=== PATIENT | male | born 1980 | race Caucasian/White ===

== ENCOUNTER 2018-11-01 16:38 | Observation (INO) ==
--- NOTE | 2018-11-01 16:58 | Emergency Department Note ---
ED Provider Note CHIEF COMPLAINT: Low back pain HISTORY OF PRESENT ILLNESS: This 38-year-old male presents to the ER with increased low back pain with radiation into his right leg. The patient states that he has had chronic back pain but it has been getting progressively worse. He was seen by his family doctor for his symptoms and referred to Dr. Davenport. Yonas guallpa has not seen Dr. Davenport yet but had seen Dr. Bruno at [facility] who got an MRI approved which she obtained on at 611. He does not know the results. The patient states that last night he could not sleep secondary to the pain. He thinks his right lower leg is getting weaker. He states his entire right leg gets numb intermittently. He denies any loss of bowel or bladder control or any saddle anesthesia. The patient denies any prior surgery to his back. He states he has tried steroids in the past without any relief of his symptoms. REVIEW OF SYSTEMS: 6 system review was performed and was negative unless stated otherwise in history of present illness. PMH: The patient is healthy; chronic problem list was reviewed and there are no changes. SOCIAL HISTORY: Patient lives with his and children. The patient admits to tobacco use and occasional alcohol use. PHYSICAL EXAM: Vital Signs were reviewed reviewed Nurse's notes and agree. GENERAL: 38-year-old white male appears in no acute distress. MENTAL STATUS: Oriented x3. NECK: Supple, no lymphadenopathy noted. No carotid bruits noted. LUNGS: Clear to auscultation without wheezes rales or rhonchi. CARDIAC: Regular rate and rhythm without murmur. Pulses full and equal throughout. ABDOMEN: Positive bowel sounds all 4 quadrants. Soft, nontender to palpation without organomegaly or masses. LUMBAR SPINE: No gross bony abnormality noted. Patient is nontender to palpation over the spinous processes. He is nontender to palpation over the paravertebral region bilaterally. He has limited range of motion in all directions secondary to pain. Patient has slight decreased strength in the right lower extremity with flexion of the lower leg as compared to the left. Extension is 5 out of 5 and symmetrical. The patient is unable to toe walk on the right foot but is able to heel walk. Bilateral patellar reflexes are 2+. LOWER EXTREMITIES: No cyanosis or edema noted. Calves are nontender to palpation. EMERGENCY DEPARTMENT COURSE: The patient was evaluated. The patient was given Toradol 60 mg IM, OxyIR 5 mg p.o. and Flexeril 10 mg p.o. The patient states that a family member who works for Dr. Davenport contacted Dr. Davenport prior to them coming to the ER. The patient states that Dr. Davenport wanted notified when the patient arrived at the ER. I consulted [facility], spine and spoke with the PA salesperson sheet music. She did not know anything about the patient. She is trying to contact Dr. Davenport. Dr. Davenport came to evaluate the patient and is going to admit the patient for observation with possible surgery tomorrow if approval is given by the insurance. The patient informed me that Dr. Davenport had reviewed his MRI and that he has a disc herniation L5-S1 and a fragment of the disc has migrated inferiorly. DIAGNOSIS: Lumbar disc herniation with radiculopathy DISCHARGE INSTRUCTIONS AND TREATMENT: Admission for observation Impression & Plan Lumbar disc herniation with radiculopathy Past Med/Surg History Medical History Hypothyroidism Anxiety and depression Dyslipidemia BMI 24.0-24.9, adult (Ruled-out) Surgical History No pertinent past surgical history Family History Father Rheumatoid arthritis Heart disease Myocardial infarction, Onset Age: 67 Mother No known problems Social History Preferred Language: Albanian marital status: Current Living Situation: Spouse and Family Current Living Situation Comment: Living with spouse and children current occupational status: employed current occupation: [employer] at [employer] Feels Safe at Home: Yes Smoking Status: Current every day smoker Tobacco Type: cigarettes packs per day: 0.5 Hx Alcohol Use: Yes (Weekly use) Alcohol type: beer Hx Substance Use: No Other Diet Comment: Well-balanced diet Dental Care, Regularly: Yes Physical Activity Frequency: 3-4 Times per Week Seatbelt Use: always Sunscreen Use: Yes Results & Data Vital Signs Vital Signs - 24 hr 11/01/18 16:39 Temperature 36.7 C Temperature Source Oral Sepsis Recent Fever Within 48 Hours No Sepsis New/Unexplained Change in Mental Status No Sepsis Action Taken by Nursing No Action Required Pulse Rate 77 Respiratory Rate 88 H Respiratory Effort / Characteristics Non-Labored Respiratory Depth Normal Blood Pressure 172/84 H Blood Pressure Mean 113 Blood Pressure Position Sitting Pulse Oximetry 16 L Oxygen Delivery Method Room Air Laboratory Data Result diagrams: 11/01/18 18:45 11/01/18 18:45 Lab Results 11/01/18 Range/Units 18:45 WBC 7.07 (4.8-10.8) K/uL RBC 5.17 (4.7-6.1) M/uL Hgb 16.7 (14.0-18.0) g/dL Hct 46.5 (42-52) % MCV 89.9 (80-100) fL MCH 32.3 (25-34) pg MCHC 35.9 (32-36) g/dL RDW Std Deviation 42.0 (36.4-46.3) fL RDW Coeff of Armida 12.9 (11.5-14.5) % Plt Count 205 (130-400) K/uL MPV 9.4 (7.4-10.4) fL Immature Gran % (Auto) 0.1 % Neut % (Auto) 63.1 % Lymph % (Auto) 23.2 % Bremer % (Auto) 11.2 % Eos % (Auto) 2.0 % Baso % (Auto) 0.4 % Immature Gran # (Auto) 0.01 (0.00-0.02) K/uL Neut # (Auto) 4.46 (1.4-6.5) K/uL Lymph # (Auto) 1.64 (1.2-3.4) K/uL Bremer # (Auto) 0.79 H (0.11-0.59) K/uL Eos # (Auto) 0.14 (0-0.5) K/uL Baso # (Auto) 0.03 (0-0.2) K/uL Administered Medications Discontinued Medications Cyclobenzaprine HCl (Flexeril) 10 mg PO NOW STA Stop: 11/01/18 17:04 Last Admin: 11/01/18 17:07 Dose: 10 mg Documented by: [id number] Ketorolac Tromethamine (Toradol) 60 mg IM NOW STA Stop: 11/01/18 17:04 Last Admin: 11/01/18 17:07 Dose: 60 mg Documented by: [id number] Oxycodone HCl (Roxicodone Immediate Rel) 5 mg PO NOW STA Stop: 11/01/18 17:04 Last Admin: 11/01/18 17:07 Dose: 5 mg Documented by: [id number] Discharge Plan Visit Data Chief Complaint: Back Injury/Pain ED Provider: Hossein Huber ED Midlevel Provider: Mecca Elizalde Discharge Problem: Lumbar disc herniation with radiculopathy Patient Disposition: Admitted As Inpatient Condition: Good Forms Stand Alone Forms: My [facility] Prescriptions Prescriptions: No Action bupropion HCl 300 mg tablet extended release 24 hr 300 mg PO QAM Qty: 90 RF: 0 levothyroxine 75 mcg tablet 75 mcg PO DAILY Qty: 30 RF: 1 Referrals Referrals: Tracy James DO [Primary Care Provider] -
[2018-11-01] MEDS ORDERED: OXYCODONE HCL IR 5 MG TAB (IMMEDIATE RELEASE) PO STA (17:03)
[2018-11-01] MEDS ORDERED: CYCLOBENZAPRINE HCL 10 MG TAB PO STA (17:03)
[2018-11-01] MEDS ORDERED: KETOROLAC TROMETHAMINE 60 MG/2 ML VIAL IM STA (17:03)
[2018-11-01] MEDS ORDERED: ACETAMINOPHEN 325 MG TAB PO PRN (18:16)
[2018-11-01] MEDS ORDERED: PROMETHAZINE HCL 12.5 MG in SODIUM CHLORIDE 0.9% 50 ML IV PRN (18:16)
[2018-11-01] MEDS ORDERED: LORazepam 1 MG TAB PO PRN (18:16)
[2018-11-01] MEDS ORDERED: LORazepam 1 MG/2 ML VIAL IV PRN (18:16)
[2018-11-01] MEDS ORDERED: HYDROmorphone INJ 0.5 MG/0.5 ML SYR IV PRN (18:16)
--- NOTE | 2018-11-01 18:25 | History & Physical Report ---
Date of Service November 01, 2018 Assessment & Plan (1) Lumbar disc herniation with radiculopathy: This time patient presents with severe S1 radiculopathy on the right with profound motor deficit. MRI obtained 3 days ago does demonstrate a massive herniated free fragment on the right at the L5-S1 level. This is concordant with his S1 radiculopathy and motor deficit. We had a lengthy discussion today with his present regarding his presentation and discomfort as well as weakness. He could consider surgical intervention. He would require a lumbar laminotomy with excision of the herniated free fragment. Risk benefits pros cons and alternatives were outlined in detail. Risks include but not limited to from anesthesia final stroke paralysis nerve damage blood loss crying transfusion infection requiring reoperation. Benadryl to be marked improvement of his radiculopathy and eventual return of his strength. At this time we will place him in the hospital for observation and adequate pain control and perform surgery tomorrow. Present on Admission?: Yes History of Present Illness Chief Complaint: Back and right leg pain Primary Care Provider: Tracy James DO This is a 38-year-old male that presents the emergency room with incapacitating right leg pain and inability to ambulate. He states that on October 13 he began experiencing fairly significant lumbosacral back pain. But the next morning he had marked severe right leg pain radiating from his right buttock posterior thi gh below the knee into his heel. Numbness and tingling extending up to the right small toe. Left lower extremity is asymptomatic. He denies any specific trauma fall or event. He does have a history of back pain for several years but nothing of this nature. He has undergone a course of oral steroids without any resolution in pain. He is trialed oral narcotics with out any improvement of his discomfort. He notes marked weakness to the right calf musculature and inability to ambulate. Pain does awaken him from sleep. Denies any loss of bowel bladder control. Allergies Allergy/AdvReac Type Severity Reaction Status Date / Time No Known Allergies Allergy Verified 11/01/18 16:57 Home Medications Home Medications Medication Instructions Recorded Confirmed Type bupropion HCl XL 300 mg 24 hr 300 mg PO QAM #90 tab 10/02/18 11/01/18 Rx tablet, extended release levothyroxine 75 mcg tablet 75 mcg PO DAILY #30 tab 10/20/18 11/01/18 Rx Past Med/Surg History Medical History Hypothyroidism Anxiety and depression Dyslipidemia BMI 24.0-24.9, adult (Ruled-out) Surgical History No pertinent past surgical history Family History Father Rheumatoid arthritis Heart disease Myocardial infarction, Onset Age: 67 Mother No known problems Social History Preferred Language: Azeri marital status: Current Living Situation: Spouse and Family Current Living Situation Comment: Living with spouse and children current occupational status: employed current occupation: [employer] at [employer] Feels Safe at Home: Yes Smoking Status: Current every day smoker Tobacco Type: cigarettes packs per day: 0.5 Hx Alcohol Use: Yes (Weekly use) Alcohol type: beer Hx Substance Use: No Other Diet Comment: Well-balanced diet Dental Care, Regularly: Yes Physical Activity Frequency: 3-4 Times per Week Seatbelt Use: always Sunscreen Use: Yes Physical Exam Physical Exam: Patient is able to sit the bedside. He is in obvious distress. He has a plus 5 out of 5 left plantar flexion dorsiflexion extensor hallucis longus quadriceps with full sensation. On the right he has plus 5 out of 5 right extensor hallucis longus quadriceps. He has marked deficits to plantar flexion. Upon standing he is unable to perform a single heel rise using his right lower extremity. He has no difficulty with the left lower extremity. He has marked tension signs with straight leg raising on the right as well as a positive Lasegue's maneuver negative on the left. He has no abnormal skin markings with inspection lumbar spine. Results & Data Vital Signs (Past 12 Hours) Vital Signs Temp Pulse Resp BP Pulse Ox 11/01/18 16:39 36.7 C 77 88 H 172/84 H 16 L
[2018-11-01 18:54] LABS: Basophils # (auto) 0.03 K/uL (0-0.2); Basophils % (auto) 0.4 %; Eosinophils # (auto) 0.14 K/uL (0-0.5); Hematocrit (blood only) 46.5 % (42-52); Hemoglobin 16.7 g/dL (14.0-18.0); Immature Granulocytes # (auto) 0.01 K/uL (0.00-0.02); Immature Granulocytes % (auto) 0.1 %; Lymphocytes # (auto) 1.64 K/uL (1.2-3.4); Lymphocytes % (auto) 23.2 %; Mean Corpuscular Hgb Conc 35.9 g/dL (32-36); Mean Corpuscular Volume 89.9 fL (80-100); Mean Platelet Volume 9.4 fL (7.4-10.4); Monocytes # (auto) 0.79 K/uL (0.11-0.59); Monocytes % (auto) 11.2 %; Neutrophils # (auto) 4.46 K/uL (1.4-6.5); Neutrophils % (auto) 63.1 %; Platelet Count 205 K/uL (130-400); RDW Coefficient of Variation 12.9 % (11.5-14.5); Red Blood Count 5.17 M/uL (4.7-6.1); White Blood Count 7.07 K/uL (4.8-10.8)
[2018-11-01 19:17] LABS: Albumin Level 4.2 gm/dl (3.4-5.0); BUN Creatinine Ratio 14.6 (10-20); Calcium 9.2 mg/dl (8.5-10.1); Creatinine Clr Calc Pharmacy 97.8 ml/min; Est GFR (African American) 106.6; Est GFR (Non-African American) 91.9; Potassium 4.2 mmol/L (3.5-5.1)
[2018-11-01 19:19] LABS: Albumin Globulin Ratio 1.2 (0.9-2); Bilirubin,Total 0.3 mg/dl (0.2-1); Globulin 3.5 gm/dl (2.5-4.0); Total Protein 7.7 gm/dl (6.4-8.2)
[2018-11-01] MEDS: LACTATED RINGER'S 1,000 ML IV SCH (20:06)
[2018-11-01] MEDS: ONDANSETRON INJ 2 MG/ML 2 ML VIAL IV PRN (20:09)
[2018-11-01] MEDS: DOCUSATE SODIUM 100 MG CAP PO SCH (20:56)
[2018-11-01] MEDS: OXYCODONE/ACETAMINOPHEN 5mg/325mg TAB PO PRN (20:58)
--- NOTE | 2018-11-01 23:23 | Anesthesiology Consultation ---
Date of Service November 01, 2018 Assessment & Plan Chart Review Chart Review: Acceptable Risk for Surgery, Patient NOT seen in Pre Admission Testing and entry level recruiter initiated Consults Requested none Additional Notes Additional assessment to be performed by the anesthesiologist for the case on the day of surgery. History Height/Weight Height: 6 ft 1 in Weight: 89 kg Allergies Allergy/AdvReac Type Severity Reaction Status Date / Time No Known Allergies Allergy Verified 11/01/18 16:57 Medications Home Medications Medication Instructions Recorded Confirmed Last Taken bupropion HCl XL 300 mg 24 hr 300 mg PO QAM #90 tab 10/02/18 11/01/18 11/01/18 tablet, extended release levothyroxine 75 mcg tablet 75 mcg PO DAILY #30 tab 10/20/18 11/01/18 11/01/18 Active Medications Generic Name Dose Route Start Last Admin Trade Name Freq PRN Reason Stop Dose Admin Docusate Sodium 100 mg 11/01/18 21:00 11/01/18 20:56 Colace PO 12/01/18 20:59 Not Given BID CHRISTOPHE Lactated Ringer's 1,000 mls @ 75 mls/hr 11/01/18 18:30 11/01/18 20:06 Lr IV 12/01/18 18:29 75 mls/hr .[id number] CHRISTOPHE Administration Ondansetron HCl 4 mg 11/01/18 18:16 11/01/18 20:09 Zofran IV 12/01/18 18:15 4 mg Q6H PRN Administration Nausea And Vomiting Oxycodone/Acetaminophen 1 - 2 tab 11/01/18 18:16 11/01/18 20:58 Percocet 5mg/325mg PO 11/15/18 18:15 2 tab Q4H PRN Administration moderate to severe pain Past Medical History Medical History Hypothyroidism Anxiety and depression Dyslipidemia BMI 24.0-24.9, adult (Ruled-out) Past Family History Family History Father Rheumatoid arthritis Heart disease Myocardial infarction, Onset Age: 67 Mother No known problems Past Surgical History Surgical History No pertinent past surgical history Social History Smoking Status: Light tobacco smoker tobacco type: cigarettes Do You Dip or Chew Tobacco: No Hx Alcohol Use: Yes Alcohol type: beer alcohol intake frequency: a few times a week Hx Substance Use: No Physical Exam Vital Signs Last Vital Signs Temp 36.7 C 11/01/18 19:22 Pulse 50 L 11/01/18 19:22 Resp 16 11/01/18 19:22 BP 163/88 H 11/01/18 19:22 Pulse Ox 97 11/01/18 19:22 Testing Laboratory Results 11/01/18 18:45 11/01/18 18:45
[2018-11-01] MEDS: HYDROmorphone INJ 0.5 MG/0.5 ML SYR IV PRN (23:54)
[2018-11-02] MEDS: HYDROmorphone INJ 0.5 MG/0.5 ML SYR IV PRN ×3 (05:15→13:24)
[2018-11-02] MEDS ORDERED: CEFAZOLIN 2000MG 2,000 MG/15 ML SYR IV SCH (06:00)
[2018-11-02] MEDS: OXYCODONE/ACETAMINOPHEN 5mg/325mg TAB PO PRN ×3 (06:29→19:42)
[2018-11-02] MEDS: ONDANSETRON INJ 2 MG/ML 2 ML VIAL IV PRN (06:29)
[2018-11-02] MEDS: DOCUSATE SODIUM 100 MG CAP PO SCH (09:51)
[2018-11-02] MEDS: LACTATED RINGER'S 1,000 ML IV SCH (09:53)
[2018-11-02] MEDS ORDERED: PROPOFOL IV EMULSION 10 MG/ML 20 ML VIAL IV ONE (14:08)
[2018-11-02] MEDS ORDERED: ROCURONIUM BROMIDE 10 MG/ML 5 ML VIAL ONE (14:08)
[2018-11-02] MEDS ORDERED: LARYING-O-JET KIT (LTA) ONE (14:08)
[2018-11-02] MEDS ORDERED: LIDOCAINE HCL 2% 2 ML VIAL/AMP(20MG/ML) INFIL ONE (14:08)
[2018-11-02] MEDS ORDERED: DEXAMETHASONE SOD INJ 4 MG/ML VIAL ONE (14:08)
[2018-11-02] MEDS ORDERED: GLYCOPYRROLATE 0.2 MG/ML VIAL ONE (14:08)
[2018-11-02] MEDS ORDERED: NEOSTIGMINE METHYLSULFATE 1 MG/ML 10ML VIAL ONE (14:08)
[2018-11-02] MEDS ORDERED: fentaNYL citrate 100 MCG/2 ML VIAL ONE ×3 (14:08→14:09)
[2018-11-02] MEDS ORDERED: ONDANSETRON INJ 2 MG/ML 2 ML VIAL ONE (14:08)
[2018-11-02] MEDS ORDERED: MIDAZOLAM HCL 1 MG/ML 2ML VIAL ONE (14:09)
[2018-11-02] MEDS ORDERED: ePHEDrine sulfate 50 MG/ML AMP IV PRN (14:35)
[2018-11-02] MEDS ORDERED: fentaNYL citrate 100 MCG/2 ML VIAL IV PRN (14:35)
[2018-11-02] MEDS ORDERED: HYDROmorphone INJ 1 MG/ML SYRINGE IV PRN (14:35)
[2018-11-02] MEDS ORDERED: ATROPINE SULFATE 0.1 MG/ML 10ML SYR IV PRN (14:35)
[2018-11-02] MEDS ORDERED: ONDANSETRON INJ 2 MG/ML 2 ML VIAL IV PRN (14:35)
--- NOTE | 2018-11-02 14:35 | History & Physical Bridge Note ---
Date of Service November 02, 2018 History & Physical Bridge Note I have examined the patient, reviewed the History & Physical and in the interval since the performance of the History & Physical I have noted the following changes of clinical significance: no changes noted
[2018-11-02] MEDS ORDERED: SCOPOLAMINE 1.5 MG TDSY ONE (14:36)
[2018-11-02] MEDS: SCOPOLAMINE 1.5 MG TDSY TD ONE ×2 (14:48→18:44)
[2018-11-02] MEDS ORDERED: BACITRACIN INJ 50,000 UNIT VIAL ONE (14:51)
[2018-11-02] MEDS ORDERED: BUPIVACAINE/EPINEPHRINE 0.5% MPF 1:200,000 30 ML VIAL ONE (14:51)
[2018-11-02] MEDS ORDERED: FLOSEAL HEMOSTATIC MATRIX 10ML TOP ONE (15:19)
[2018-11-02] MEDS ORDERED: PROMETHAZINE HCL INJ 25 MG/ML 1 ML VIAL ONE (15:42)
[2018-11-02] MEDS ORDERED: HYDROmorphone INJ 2 MG/ML SYR/VIAL ONE (15:42)
[2018-11-02] MEDS ORDERED: CHECK SCOPOLAMINE PATCH PLACEMENT SCH (16:00)
--- NOTE | 2018-11-02 16:21 | Operative Report ---
Post Operative Report Pre & Post Diagnosis Operation Date: 11/02/18 07:00 Pre-Op Diagnosis: Lumbar disc herniation with radiculopathy Post-Op Diagnosis: Lumbar disc herniation with radiculopathy Procedure Operation Date: 11/02/18 07:00 Actual Procedures Lumbar laminotomy L5-S1 on the right with excision of herniated free fragment. Surgeon Carlos Davenport DO Data Warehouse Architect Adriana Escobedo Estimated Blood Loss 50 Findings Consistent with Post-Op Diagnosis Specimens None Indications This is a 38-year-old male presents with the above-mentioned diagnosis. Sec ondary to significant pain and neurodeficit would like to undergo the above- mentioned procedure. Description of Procedure Patient was met with identified and informed consent obtained. He was then taken to the operative suite underwent intubation placed in a prone position the Larry table on top of the Meño frame. All bony prominences well-padded eyes inspected to ensure no external pressure placed upon the peer at this point the lumbar spine was prepped and draped in a normal sterile fashion. With the assistance of fluoroscopy identified the L5-S1 interlaminar space. Sharp dissection with the assistance of Bovie cautery was then performed down to and exposing the interlaminar space at L5-S1 on the right. Self-retaining retractors placed. I created a small laminotomy excising the lateral portion of ligamentum flavum and a portion of the superior aspect of the S1 lamina to expose a severely compressed S1 nerve root. Massive amounts of free fragment were noted within the axilla of the root. There was explored several times to ensure all fragments addressed. Was then copiously irrigated and closed with 1 Vicryl in the fascia 2-0 Vicryl subcutaneous layer and 4 Monocryl for final skin closure. Steri-Strip sterile dressings placed. Patient will continue PACU stable condition. Please note Adriana Escobedo was present throughout the entire procedure involved in patient positioning complex portions of the surgery and final skin closure. I attest to the content of the Intraoperative Record and any orders documented therein. Any exceptions are noted below.
--- NOTE | 2018-11-02 16:55 | Fluoroscopy Report ---
FL spine 1V any level CLINICAL HISTORY: L5-S1 laminectomy COMPARISON STUDY: None FLUOROSCOPY TIME: 4 seconds. NUMBER OF FLUOROSCOPIC IMAGES: 1 FINDINGS: A single crosstable lateral fluoroscopic spot image demonstrates skin retractors and a meta llic probe at the S1 level. IMPRESSION: Intraoperative fluoroscopic spot images demonstrating a metallic probe at the superior S 1 level. Electronically signed by: Fredi Blackwell M.D. 11/02/2018 4:53 PM
--- NOTE | 2018-11-02 16:59 | Anesthesiology Progress Note ---
Date of Service November 02, 2018 Anesthesia Post Procedure Vital Signs Vital Signs: Temp Pulse Pulse Resp BP Pulse Ox 11/02/18 16:45 48 L 13 142/70 H 100 11/02/18 16:35 36.6 C 63 16 128/66 95 11/02/18 14:11 36.9 C 62 16 164/85 H 100 11/02/18 07:49 36.6 C 72 18 136/71 98 11/01/18 23:40 36.6 C 66 16 149/70 H 97 11/01/18 19:22 36.7 C 50 L 16 163/88 H 97 Pain Intensity Lower Back: Pain Intensity: 4 Transfer of Care Handoff Completed per policy Notes Mental Status: alert / awake / arousable and participated in evaluation Patient Amnestic to Procedure: Yes Nausea / Vomiting: adequately controlled Pain: adequately controlled Airway Patency, RR, SpO2: stable & adequate BP & HR: stable & adequate Hydration State: stable & adequate Anesthetic Complications: no major complications apparent and Pt Satisfied with anesthetic care
[2018-11-03] MEDS ORDERED: LEVOTHYROXINE SODIUM 75 MCG TABLET PO SCH (06:30)
[2018-11-03] MEDS ORDERED: BuPROPion XL 300 MG TABCR PO SCH (09:00)
--- NOTE | 2018-11-10 09:34 | Discharge Summary ---
Date of Service November 10, 2018 Admission HPI Per Admitting Provider This is a 38-year-old male that presents the emergency room with incapacitating right leg pain and inability to ambulate. He states that on October 13 he began experiencing fairly significant lumbosacral back pain. But the next morning he had marked severe right leg pain radiating from his right buttock posterior thigh below the knee into his heel. Numbness and tingling extending up to the right small toe. Left lower extremity is asymptomatic. He denies any specific trauma fall or event. He does have a history of back pain for several years but nothing of this nature. He has undergone a course of oral steroids without any resolution in pain. He is trialed oral narcotics with out any improvement of his discomfort. He notes marked weakness to the right calf musculature and inability to ambulate. Pain does awaken him from sleep. Denies any loss of bowel bladder control. Principal Diagnosis Lumbar disc herniation with radiculopathy Discharge Data Allergies Allergy/AdvReac Type Severity Reaction Status Date / Time No Known Allergies Allergy Verified 11/01/18 16:57 Procedures Performed Operation Date: 11/02/18 07:00 Actual Procedures p Laminectomy L5-S1(Not Applicable) - Carlos Davenport DO Ordered Studies 11/02/18 FL fluoroscopy <1hr Routine FL spine 1V any level Routine Hospital Course (1) Lumbar disc herniation with radiculopathy: Patient was admitted with severe leg pain underwent lumbar laminotomy the following day. He tolerated this very well and was subsequently discharged home. Discharge orders instructions from the chart for further review. Total Time Total Time Spent Total Time Spent (In Minutes): 30 minutes Discharge Plan Discharge Items Patient Disposition: Home - Self-Care Reason For Visit: INABILITY TO AMBULATE Discharge Diagnosis: Herniated nucleus pulposus L5-S1 on the right Condition: Good Discharge Goals: Improve function Activity: Per 'Additional Instructions' section Non-emergency contact: Primary Care Provider Call non-emergency contact if: you have any medication questions Follow-up/Referrals: Tracy James DO [Primary Care Provider] - Diet: Regular Addtl Provider Instructions: ACTIVITY RECOMMENDATIONS: SELF CARE INSTRUCTIONS AFTER A LAMINECTOMY 1. No prolonged sitting (less than 30 minutes for the first 3 weeks after surgery). 2. No bending, lifting more than 5 pounds, or twisting (roll like a log when turning in bed). 3. You may shower 3 days after surgery if no drainage from wound. Thoroughly dry wound. Do not soak in the tub. 4. Please walk as much as you can for exercise. Gradually increase the distance that you walk as your endurance increases. 5. You may drive in 7-10 days if you are comfortable and no longer requiring pain medications. SPECIAL CARE INSTRUCTIONS: VERY IMPORTANT TO READ AND REVIEW A. Your surgical incision has been closed with a cosmetic suture under the skin that will dissolve in about 6 weeks. In 14 days, you can use a pair of clean scissors and cut the suture that is left outside of the skin at the ends of your incision. B. Complications are uncommon, but please contact us if you have any signs or symptoms of: 1. wound infection (fever higher than 102.5 degrees F, redness, separation of wound, drainage, or increasing pain from the incision) 2. blood clots in legs (pain, swelling, redness and warmth in legs) 3. urinary tract infection (fever higher than 102.5 degrees, burning upon urination or increased frequency of urination) 4. nerve problems (inability to walk on your toes or heels, numbness, loss of bowel or bladder control) 5. any other symptoms that concern you. C. Please call the office at if you have any concerns or questions about your operation or recovery. MANAGING PAIN AFTER SPINAL SURGERY 1. Narcotic medication is intended for short-term use and will be provided for surgical pain. Surgical pain usually lasts for a period of 4-6 weeks. Narcotic medication includes Percocet, Vicodin, Darvocet, Tylenol #3 or Lortab. 2. Longer-term pain is more appropriately treated with non-narcotic medication such as Tylenol ES. 3. Muscle spasm is not appropriately treated with narcotics. Muscle relaxers such as Soma, Flexeril or Skelaxin can be used along with Tylenol ES. 4. Remember that we all live with some "aches and pains". This is not unusual or uncommon after an injury or as we get older. 5. We will provide appropriate medication within the normal guidelines of their prescribed use. We will also be very cautious and aware of potential abuse and extended duration of patients' medication needs. 6. Please allow 2-3 days to process refills. Prescriptions will not be mailed but must be picked up at the office. FOLLOW UP VISIT: Keep your scheduled follow-up appointment. Any questions, please call the office at . Prescriptions: New oxycodone-acetaminophen 5-325 mg tablet 1 tab PO Q6H PRN (Reason: pain) Qty: 20 RF: 0 Continued bupropion HCl 300 mg tablet extended release 24 hr 300 mg PO QAM Qty: 90 RF: 0 levothyroxine 75 mcg tablet 75 mcg PO DAILY Qty: 30 RF: 1 Stand-Alone Forms: [facility], [facility] Discharge Orders: Discharge Order (Routine); Ordered 11/02/18 Ordered By: Carlos Davenport Admission Data Admit Date/Time: 11/01/18 18:16 Attending Provider: Carlos Davenport Admit Provider: Carlos Davenport Primary Care Provider: Tracy James. Service: Surgical Services Other Interventions: Discharge Summary Assessment (RN) Last Done: 11/02/18 20:07 DC Date/Time DO NOT enter until pt leaves facility: 11/02/18 20:40
== END 2018-11-02 20:40 | disposition home or self-care (01) ==
LOC: 3N 16:38 → ED 16:38 → 3N 18:56